=== PATIENT | male | born 1950 | race Caucasian/White ===

== ENCOUNTER 2019-03-30 08:10 | Day surgery (SDC) | payer MEDICARE, OTHER ==
[~2019-03-30] VITALS: Ht 182.9 cm; Wt 61.8 kg
[2019-03-30 09:00] VITALS: BP 145/92
[2019-03-30] MEDS ORDERED: LORA10TA7 PO (09:09)
[2019-03-30] MEDS ORDERED: METO-467 PO (09:09)
[2019-03-30] MEDS ORDERED: FOLI0.4T2 PO (09:09)
[2019-03-30] MEDS ORDERED: ASPI-1264 PO (09:09)
[2019-03-30] MEDS ORDERED: UBID100C16 PO (09:09)
[2019-03-30] MEDS ORDERED: C,E,1CAP PO (09:09)
== END 2019-03-30 10:18 | disposition home or self-care (01) ==
LOC: SSTAY O 08:10
PROVIDERS: ATTEND Radiology Diagnostic Radiology
DX: J91.8 Pleural effusion in other conditions classified elsewhere (principal); Z53.09 Procedure and treatment not carried out because of other contraindication
CPT/HCPCS: 76604